=== PATIENT | male | born 1985 | race Two or more races ===

== ENCOUNTER 2017-02-15 08:58 | Emergency (ER) | payer OTHER ==
[~2017-02-15] VITALS: Ht 172.7 cm; Wt 113.4 kg
[2017-02-15] MEDS ORDERED: IBUPROFEN800 MG PO (13:41)
== END 2017-02-15 13:57 | disposition home or self-care (01) ==
LOC: ER 08:58
DX: S60.011A Contusion of right thumb without damage to nail, initial encounter (principal); W23.0XXA Caught, crushed, jammed, or pinched between moving objects, initial encounter; Y93.89 Activity, other specified; Y92.89 Other specified places as the place of occurrence of the external cause; Y99.8 Other external cause status

== ENCOUNTER 2018-04-22 17:04 | Emergency (ER) | payer OTHER ==
[~2018-04-22] VITALS: Ht 172.7 cm; Wt 81.6 kg
[~2018-04-22 17:04] MED LIST: IBUPROFEN800 MG PO
== END 2018-04-22 22:40 | disposition home or self-care (01) ==
LOC: ER 17:04
DX: K52.9 Noninfective gastroenteritis and colitis, unspecified (principal)

== ENCOUNTER 2019-12-27 07:31 | Emergency (ER) | payer OTHER ==
[~2019-12-27] VITALS: Ht 172.7 cm; Wt 104.3 kg
[2019-12-27] MEDS ORDERED: LEVSIN/SL0.125 MG SL (10:19)
[2019-12-27] MEDS ORDERED: ZITHROMAX500 MG PO (10:19)
[2019-12-27] MEDS ORDERED: PEPCID AC20 MG PO (10:19)
[2019-12-27] MEDS ORDERED: KETO10TA2 PO (10:23)
== END 2019-12-27 10:39 | disposition home or self-care (01) ==
LOC: ER 07:31
DX: N20.0 Calculus of kidney (principal); R10.32 Left lower quadrant pain; R10.12 Left upper quadrant pain; Z03.818 Encounter for observation for suspected exposure to other biological agents ruled out

== ENCOUNTER 2020-01-18 07:01 | Emergency (ER) | payer OTHER ==
[~2020-01-18] VITALS: Ht 170.2 cm; Wt 72.6 kg
[~2020-01-18 07:01] MED LIST changes: +KETO10TA2 PO; +LEVSIN/SL0.125 MG SL; +PEPCID AC20 MG PO; +ZITHROMAX500 MG PO
== END 2020-01-18 17:31 | disposition home or self-care (01) ==
LOC: ER 07:01
DX: N20.1 Calculus of ureter (principal)